=== PATIENT | male | born 1955 | race African-American/Black ===

== ENCOUNTER 2018-07-04 11:47 | Inpatient (IN) ==
[2018-07-04 13:42] LABS: Albumin 2.5 G/DL (3.4-5.0); Bilirubin,Total 0.7 MG/DL (0.2-1.0); Calcium 8.4 MG/DL (8.5-10.1); Osmolality,Calculated 282.1 MOS/KG (273-304); Potassium 4.4 MMOL/L (3.5-5.1); Total Protein 7.3 G/DL (6.4-8.3)
[2018-07-04] MEDS ORDERED: SODIUM CHLORIDE 0.9% 1,000 ML IV PRN (13:55)
[2018-07-04] MEDS ORDERED: ONDANSETRON 4 MG/2 ML VIAL IV PRN (14:30)
[2018-07-04] MEDS ORDERED: GLUCAGON 1 MG VIAL IM PRN (14:33)
[2018-07-04] MEDS ORDERED: DEXTROSE 50% 25 GM/50 ML VIAL IV PRN (14:33)
[2018-07-04] MEDS ORDERED: INSULIN REGULAR 100 UNIT/ML SUBCUT STA (14:35)
[2018-07-04 14:38] LABS: Hemoglobin 5.5 GM/DL (14.0-18.0); Red Blood Count 3.22 MC/CUMM (3.8-5.5); White Blood Count 5.5 T/CUMM (4-12)
[2018-07-04 14:39] LABS: Basophils % 0.2 % (0.0-0.8); Immature Granulocytes % 0.4 %; Lymphocytes % 29.4 % (21.2-54.2); Mean Corpuscular HGB Conc 26.2 GM/DL (32-36); Mean Corpuscular Hemoglobin 17 PG (27-34); Mean Corpuscular Volume 65.2 FL (87-102); Mean Platelet Volume 10.3 FL (9.6-12.0); Monocytes % 8.1 % (1.7-12.7); Neutrophils % 59.9 % (38.7-73.9); Platelet Count 210 T/CUMM (130-400); Red Cell Distribution Width 18.1 % (9.3-17.3)
[2018-07-04 14:40] LABS: Eosinophils # 0.1 10*3/uL (0.0-0.87); Hypochromasia 2+; Immature Granulocytes Absolute 0.02 #; Lymphocytes # 1.6 10*3/uL (1.4-4.0); Microcytosis 1+; Monocytes # 0.5 10*3/uL (0.11-0.8); Neutrophils # 3.3 10*3/uL (1.4-7.4); Platelet Estimate Adequate
[2018-07-04 15:09] LABS: Folate 12.2 NG/ML (5.4-24.0); Vitamin B12 215 PG/ML (211-911)
[2018-07-04 15:29] LABS: Sedimentation Rate-Westergren 117 MM/HR (0-20)
[2018-07-04] MEDS ORDERED: ROCURONIUM 100 MG/10 ML VIAL IV ONE (15:36)
[2018-07-04] MEDS: NICOTINE 21 MG/24 HR PATCH TRANSDERM SCH (16:24)
[2018-07-04] MEDS: PANTOPRAZOLE 40 MG TABLET PO SCH (16:24)
[2018-07-04] MEDS: INSULIN REGULAR 100 UNIT/ML SUBCUT SCH ×2 (16:46→21:23)
[2018-07-04] MEDS ORDERED: INFLUENZA VIRUS VACCINE 0.5 ML SYRINGE IM ONE (17:36)
[2018-07-04] MEDS: GABAPENTIN 100 MG CAPSULE PO SCH (21:23)
[2018-07-04] MEDS: CARVEDILOL 3.125 MG TABLET PO SCH (21:23)
[2018-07-04] MEDS: glyBURIDE 2.5 MG TABLET PO SCH (21:23)
[2018-07-04] MEDS: metFORMIN 500 MG TABLET PO SCH (21:23)
[2018-07-05 08:08] LABS: Basophils % 0.3 % (0.0-0.8); Eosinophils # 0.2 10*3/uL (0.0-0.87); Eosinophils % 2.8 % (0.00-10.9); Hematocrit 24.4 VOL% (42.0-52.0); Immature Granulocytes % 0.3 %; Immature Granulocytes Absolute 0.02 #; Lymphocytes # 2.1 10*3/uL (1.4-4.0); Lymphocytes % 32.3 % (21.2-54.2); Mean Corpuscular HGB Conc 29.1 GM/DL (32-36); Mean Corpuscular Hemoglobin 20 PG (27-34); Monocytes # 0.5 10*3/uL (0.11-0.8); Monocytes % 8.3 % (1.7-12.7); Neutrophils # 3.6 10*3/uL (1.4-7.4); Platelet Count 189 T/CUMM (130-400); Red Blood Count 3.59 MC/CUMM (3.8-5.5); White Blood Count 6.4 T/CUMM (4-12)
[2018-07-05 08:09] LABS: Hemoglobin 7.1 GM/DL (14.0-18.0)
[2018-07-05] MEDS: PANTOPRAZOLE 40 MG TABLET PO SCH (08:30)
[2018-07-05] MEDS: glyBURIDE 2.5 MG TABLET PO SCH ×2 (08:30→20:19)
[2018-07-05] MEDS: LISINOPRIL 20 MG TABLET PO SCH (08:30)
[2018-07-05] MEDS: metFORMIN 500 MG TABLET PO SCH (08:31)
[2018-07-05] MEDS: NICOTINE 21 MG/24 HR PATCH TRANSDERM SCH (08:32)
[2018-07-05] MEDS: GABAPENTIN 100 MG CAPSULE PO SCH ×2 (08:32→20:19)
[2018-07-05] MEDS: CARVEDILOL 3.125 MG TABLET PO SCH ×2 (08:32→20:19)
[2018-07-05] MEDS: INSULIN REGULAR 100 UNIT/ML SUBCUT SCH ×4 (08:33→20:19)
[2018-07-05 08:38] LABS: Calcium 7.7 MG/DL (8.5-10.1); Osmolality,Calculated 283.7 MOS/KG (273-304); Potassium 4.1 MMOL/L (3.5-5.1); Risk Ratio 4.78; Thyroid Stimulating Hormone 1.24 uIU/ml (0.358-3.74); VLDL CHOLESTEROL 15.2 MG/DL
[2018-07-05] MEDS ORDERED: ASPIRIN EC 81 MG TABLET PO SCH (09:00)
[2018-07-05 09:13] LABS: Hemoglobin A1 (Alkaline) 97.4 % (96.5-98.5); Hemoglobin A2 (Alkaline) 2.6 % (1.5-3.5)
[2018-07-05] MEDS ORDERED: SODIUM CHLORIDE 0.9% 1,000 ML IV PRN (10:52)
[2018-07-05] MEDS: LORATADINE 10 MG TABLET PO SCH (12:26)
[2018-07-05 13:11] LABS: % Iron Saturation 4.9 % (18-50)
[2018-07-05] MEDS: ATORVASTATIN 20 MG TABLET PO SCH (20:19)
[2018-07-06 06:03] LABS: Calcium 7.8 MG/DL (8.5-10.1); Osmolality,Calculated 283.5 MOS/KG (273-304); Potassium 3.9 MMOL/L (3.5-5.1)
[2018-07-06 06:09] LABS: Basophils % 0.2 % (0.0-0.8); Eosinophils # 0.2 10*3/uL (0.0-0.87); Eosinophils % 2.8 % (0.00-10.9); Hematocrit 27.8 VOL% (42.0-52.0); Immature Granulocytes % 0.2 %; Immature Granulocytes Absolute 0.02 #; Lymphocytes # 2.3 10*3/uL (1.4-4.0); Lymphocytes % 27.7 % (21.2-54.2); Mean Corpuscular HGB Conc 28.8 GM/DL (32-36); Mean Corpuscular Hemoglobin 20 PG (27-34); Mean Corpuscular Volume 68.5 FL (87-102); Monocytes # 0.7 10*3/uL (0.11-0.8); Monocytes % 8.3 % (1.7-12.7); Neutrophils % 60.8 % (38.7-73.9); Platelet Count 204 T/CUMM (130-400); Red Blood Count 4.06 MC/CUMM (3.8-5.5); Red Cell Distribution Width 21.2 % (9.3-17.3); White Blood Count 8.2 T/CUMM (4-12)
[2018-07-06 06:30] LABS: Hypochromasia 1+; Microcytosis 1+; Platelet Estimate Adequate; Polychromasia Slight
[2018-07-06] MEDS: INSULIN REGULAR 100 UNIT/ML SUBCUT SCH ×4 (08:17→21:45)
[2018-07-06] MEDS: NICOTINE 21 MG/24 HR PATCH TRANSDERM SCH (09:06)
[2018-07-06] MEDS ORDERED: BISACODYL 5 MG TABLET PO ONE (12:00)
[2018-07-06] MEDS ORDERED: LIDOCAINE 1% 5 ML VIAL ONE (14:30)
[2018-07-06] MEDS ORDERED: PROPOFOL 200 MG/20 ML VIAL IV ONE (14:30)
[2018-07-06] MEDS: CARVEDILOL 3.125 MG TABLET PO SCH ×2 (15:08→21:37)
[2018-07-06] MEDS: LISINOPRIL 20 MG TABLET PO SCH (15:08)
[2018-07-06] MEDS: PANTOPRAZOLE 40 MG TABLET PO SCH (15:08)
[2018-07-06] MEDS: glyBURIDE 2.5 MG TABLET PO SCH ×2 (15:08→21:36)
[2018-07-06] MEDS: LORATADINE 10 MG TABLET PO SCH (15:08)
[2018-07-06] MEDS: GABAPENTIN 100 MG CAPSULE PO SCH ×2 (15:09→21:37)
[2018-07-06] MEDS ORDERED: POLYETHYLENE GLYCOL POWDER 255 GM BOTTLE PO ONE (18:00)
[2018-07-06] MEDS: ATORVASTATIN 20 MG TABLET PO SCH (21:36)
[2018-07-07 06:43] LABS: PT Patient Result 10.6 SECS
[2018-07-07 06:55] LABS: Basophils % 0.1 % (0.0-0.8); Eosinophils # 0.1 10*3/uL (0.0-0.87); Eosinophils % 0.6 % (0.00-10.9); Hematocrit 29.1 VOL% (42.0-52.0); Immature Granulocytes % 0.4 %; Immature Granulocytes Absolute 0.04 #; Lymphocytes # 1.6 10*3/uL (1.4-4.0); Mean Corpuscular HGB Conc 29.2 GM/DL (32-36); Mean Corpuscular Hemoglobin 20 PG (27-34); Mean Corpuscular Volume 69.3 FL (87-102); Monocytes # 0.7 10*3/uL (0.11-0.8); Monocytes % 7.1 % (1.7-12.7); Neutrophils # 7.4 10*3/uL (1.4-7.4); Neutrophils % 75.8 % (38.7-73.9); Platelet Count 229 T/CUMM (130-400); Red Cell Distribution Width 21.9 % (9.3-17.3); White Blood Count 9.8 T/CUMM (4-12)
[2018-07-07 06:59] LABS: Hemoglobin 8.5 GM/DL (14.0-18.0)
[2018-07-07 07:20] LABS: Anisocytosis 1+; Hypochromasia 2+; Microcytosis 1+; Ovalocytes Slight; Polychromasia Slight
[2018-07-07 07:21] LABS: Platelet Estimate Normal
[2018-07-07] MEDS: INSULIN REGULAR 100 UNIT/ML SUBCUT SCH ×2 (08:05→12:36)
[2018-07-07] MEDS ORDERED: LIDOCAINE 2% 5 ML VIAL ONE (09:00)
[2018-07-07] MEDS ORDERED: DEXTROSE 5% 1,000 ML IV SCH (09:00)
[2018-07-07] MEDS ORDERED: PROPOFOL 200 MG/20 ML VIAL IV ONE (09:00)
[2018-07-07] MEDS: LISINOPRIL 20 MG TABLET PO SCH (09:44)
[2018-07-07] MEDS: CARVEDILOL 3.125 MG TABLET PO SCH (09:44)
[2018-07-07] MEDS: GABAPENTIN 100 MG CAPSULE PO SCH (09:44)
[2018-07-07] MEDS: NICOTINE 21 MG/24 HR PATCH TRANSDERM SCH (09:44)
[2018-07-07] MEDS: glyBURIDE 2.5 MG TABLET PO SCH (09:44)
[2018-07-07] MEDS: LORATADINE 10 MG TABLET PO SCH (09:44)
[2018-07-07] MEDS: PANTOPRAZOLE 40 MG TABLET PO SCH (09:44)
[2018-07-07 12:52] VITALS: BP 150/77
== END 2018-07-07 13:22 | disposition home or self-care (01) | DRG 812 ==
LOC: N.EDINP 11:47 → N.ED 11:47 → SUATTDRO 14:30 → N.5E 15:10
PROVIDERS: ADMIT Hospitalist; ATTEND Internal Medicine